=== PATIENT | female | born 1995 | race Caucasian/White ===

== ENCOUNTER 2024-10-14 05:10 | Inpatient (IN) | payer BC, SELFPAY ==
[2024-10-14 05:19] VITALS: BMI 28.2
[2024-10-14 05:28] VITALS: BP 100/69
[2024-10-14] MEDS: LR 1000 IV ×2 (05:40→07:19)
[2024-10-14] MEDS: PENICILLIN 110 UNITS IV (05:56)
[2024-10-14] MEDS: FENTANYL/BUPIVACAINE 100 EPIDURAL (06:02)
[2024-10-14] MEDS: SUBLIMAZE 100 MCG EPIDURAL (06:02)
[2024-10-14 06:25] LABS: % Basophils 0.6 % (0-2); % Immature Granulocytes 0.8 % (0-0.5); % Lymphocytes 29.4 % (20.5-51.1); % Monocytes 7.1 % (1.7-9.3); % Neutrophils 61.1 % (42.2-75.2); Absolute Basophils 0.1 10^3/uL (0-0.2); Absolute Eosinophils 0.1 10^3/uL (0-0.7); Absolute Immature Granulocytes 0.1 10^3/uL (0-0.05); Absolute Lymphocytes 3.7 10^3/uL (1.2-3.4); Absolute Monocytes 0.9 10^3/uL (0.1-0.6); Absolute Neutrophils 7.7 10^3/uL (1.4-6.5); Hematocrit 32.9 % (37.0-47.0); Hemoglobin 10.3 g/dL (12.0-16.0); Mean Corp Hgb Conc. 31.3 g/dL (33.0-37.0); Mean Corpuscular Hgb 23.8 pg (27.0-31.0); Mean Corpuscular Volume 76.2 fL (81.0-99.0); Nucleated Red Blood Cells % 0 %; Platelet Count 172 10^3/uL (130-400); Red Blood Cell Count 4.32 10^6/uL (4.20-5.40); Red Cell Dist. Width 17.2 % (11.5-14.5); White Blood Cell Count 12.6 10^3/uL (4.8-10.8)
[2024-10-14] MEDS: PENICILLIN 55 UNITS IV (09:48)
[2024-10-14] MEDS: MOTRIN 600 MG PO ×2 (16:48→23:25)
[2024-10-14] MEDS: TYLENOL 650 MG PO (20:35)
[2024-10-15] MEDS: TYLENOL 650 MG PO ×3 (05:03→13:02)
[2024-10-15 05:19] LABS: Hemoglobin 8.9 g/dL (12.0-16.0)
[2024-10-15] MEDS: MOTRIN 600 MG PO ×2 (05:45→13:02)
[2024-10-15] MEDS: PRENATAL PLUS 1 TABLET PO (08:35)
[2024-10-15] MEDS: FEOSOL 325 MG PO (08:36)
[2024-10-15] MEDS: SENOKOT-S 1 TABLET PO (09:14)
[2024-10-15 16:47] LABS: Syphilis/T. pallidum Ab Reflex Negative (Negative)
== END 2024-10-15 17:11 | disposition home or self-care (01) | DRG 807 ==
LOC: LDRP 05:10
PROVIDERS: Obstetrics & Gynecology; ADMITTING PHYSICIAN Obstetrics & Gynecology
PROC: 6A550ZT Pheresis of Cord Blood Stem Cells, Single (ICD-10-PCS; 2024-10-14)
PROC: 10E0XZZ Delivery of Products of Conception, External Approach (ICD-10-PCS; 2024-10-14)
PROC: 0HQ9XZZ Repair Perineum Skin, External Approach (ICD-10-PCS; 2024-10-14)
PROC: 10907ZC Drainage of Amniotic Fluid, Therapeutic from Products of Conception, Via Natural or Artificial Opening (ICD-10-PCS; 2024-10-14)
DX: O99.824 Streptococcus B carrier state complicating childbirth (principal); Z37.0 Single live birth; Z3A.39 39 weeks gestation of pregnancy; O70.0 First degree perineal laceration during delivery; O69.2XX0 Labor and delivery complicated by other cord entanglement, with compression, not applicable or unspecified; O90.81 Anemia of the puerperium; D64.9 Anemia, unspecified; Z82.49 Family history of ischemic heart disease and other diseases of the circulatory system; Z80.3 Family history of malignant neoplasm of breast
CPT/HCPCS: 85014; 85018; 85025; 86780; 86850; 86900; 86901; 87491; 87591